=== PATIENT | female | born 1995 | race Caucasian/White ===

== ENCOUNTER 2016-08-15 05:30 | Emergency (ER) | payer BC, OTHER ==
[~2016-08-15] VITALS: Ht 165.1 cm; Wt 54.2 kg
[2016-08-15 05:33] VITALS: Ht 165.1 cm; Wt 54.2 kg
[2016-08-15] MEDS ORDERED: ACETAMINOPHEN 500 MG TAB PO STA (05:54)
--- NOTE | 2016-08-15 06:14 | EMERGENCY ROOM VISIT NOTE ---
ED Visit Note First contact with patient: 05:39 Chief Complaint: 103.7 Fever, Chicken Pox? History of Present Illness: Patient is a 21-year-old female who presents the emergency Department this morning for evaluation of her fever and possible chickenpox. She reports that on Monday evening she developed a fever of 101. On Monday morning she developed a rash. The rash is diffusely spread throughout her body. She describes it as itching. She was seen at a walk-in clinic and diagnosed with chickenpox. She reports that she has taken ibuprofen with minimal relief of symptoms, particularly fever. She was concerned for her fever which brought her to the emergency department today. She rates her current discomfort as a 5/10. The patient has not been vaccinated for chickenpox. She was vaccinated for everything else. She denies any headaches, dizziness, lightheadedness, neck pain/stiffness, nausea, vomiting, chest pain, cough, or abdominal pain. Medications: No current medications. Allergies: No known allergies. PMH: No pertinent past medical history. SHx: Patient is a 21-year-old female in [employer] who lives with roommates. ROS: All pertinent positive and negative review of systems are appropriately documented in the History of Present Illness. Physical Exam: VITAL SIGNS - Vital signs and nursing notes were reviewed. GENERAL - Well nourished, well developed 21-year-old female in no acute distress. Pt communicates well with provider and answers questions appropriately. SKIN - Vesicular lesions on red bases in multiple stages throughout the body. No crusting of lesions. No petechiae or palpable purpura. HEAD - NC/AT with no obvious deformities. EYES - PERRL with EOMI bilaterally. Sclera without injection. Palpebral conjunctiva pink and moist. EARS - No deformities of external structures noted on gross examination bilaterally. No pain elicited with palpation of the tragus bilaterally. External auditory canals without discharge or otorrhea. Tympanic membranes pearly ruiz without retraction or bulging. No fluid or purulent material visualized behind the TM. Handle of malleus, umbo, cone of light, pars tensa/ flaccid all easily visualized. NOSE - Midline and without cyanosis. No purulent drainage noted. Nasal mucosa without mucus discharge. MOUTH/OROPHARYNX - Without perioral cyanosis. Buccal mucosa pink and moist and without leukoplakia. Tongue midline with equal elevation of palate bilaterally. No tonsillar hypertrophy, erythema, or exudates noted. Good dentition noted. NECK - Neck with FROM. Supple to palpation. No lymphadenopathy noted. No nuchal rigidity. LUNGS - Chest wall symmetric without accessory muscle use, intercostals retractions, or central cyanosis. Normal vesicular breath sounds CTA B/L. No wheezes, rales, or rhonchi appreciated. CARDIAC - RRR with S1/S2. No murmur, rubs, or gallops appreciated. ABDOMEN - Abdominal contour flat without pulsations or visible masses. BS normoactive all four quadrants. No tenderness, palpable masses, hepatosplenomegaly, or ascites noted. ED Course: Patient was seen and evaluated by myself. I had a lengthy discussion with the patient regarding symptoms, management, and isolation to this point. She was provided Tylenol for symptoms of fever. Ferrous elbow wound cultures were obtained and pending at this time. The patient was encouraged to follow-up with [facility] from today's visit. She was educated on worrisome symptoms for return visit to the emergency department. Patient discharged home afebrile and in good condition. In the evaluation and treatment of this patient, the following differential diagnoses were considered: Cellulitis, dermatitis, mumps, measles, amongst others. Impression: Varicella Zoster - Chicken Pox Discharge Instructions: You've been seen in the emergency department today for your chickenpox. You should take Benadryl (diphenhydramine) 25-50 mg every 6 hours for the next 3 days. You can find this medicine [id number]. Benadryl can help reduce your symptoms. You should take it for the next 3 days or until your symptoms have subsided. Be aware that Benadryl can make you drowsy. For pain control, you can use the following kvwi-ldp-[id number] medicines (if >12 yo): - Regular strength (325mg/tab) Tylenol (acetaminophen) 2 tabs every 4-6 hours as needed. Do not exceed 12 tablets in a 24 hour period. Avoid taking more than 4 grams (4000 mg) of Tylenol per day. This includes any other sources of acetaminophen you may take on a regular basis. - Regular strength (200 mg/tab) Advil (ibuprofen) 1-2 tabs every 4-6 hours as needed. Do not exceed a dose of 3200 mg per day. You can contact the emergency department at [phone] for the results of your varicella swabs. This should be available within the next 72 hours. Follow-up with [facility] from today's visit. Return for any changing or worsening symptoms. Current/Historical Medications No Active Prescriptions or Reported Meds Allergies Coded Allergies: No Known Allergies (Unverified , 08/19/16) Vital Signs Date Time Temp Pulse Resp B/P Pulse Ox O2 Delivery O2 Flow Rate FiO2 08/15/16 06:29 37.5 98 16 119/74 100 08/15/16 05:33 37.9 119 18 124/82 99 Room Air Laboratory Results Test 08/15/16 00:00 Medications Administered Medications (Trade) Dose Ordered Sig/Elias Route Start Time Stop Time Status Last Admin Dose Admin Acetaminophen (Tylenol Tab) 1,000 mg NOW STAT PO 08/15/16 05:54 08/15/16 05:56 DC 08/15/16 05:54 1,000 MG Departure Information Impression Primary Impression: Varicella zoster Additional Impressions: Chicken pox Fever Dispostion Home / Self-Care Condition GOOD Prescriptions No Active Prescriptions or Reported Meds Referrals No Doctor, Assigned (PCP) Patient Instructions ED Chickenpox Ch, [facility] Additional Instructions You've been seen in the emergency department today for your chickenpox. You should take Benadryl (diphenhydramine) 25-50 mg every 6 hours for the next 3 days. You can find this medicine [id number]. Benadryl can help reduce your symptoms. You should take it for the next 3 days or until your symptoms have subsided. Be aware that Benadryl can make you drowsy. For pain control, you can use the following avyi-chl-efccvvd medicines (if >12 yo): - Regular strength (325mg/tab) Tylenol (acetaminophen) 2 tabs every 4-6 hours as needed. Do not exceed 12 tablets in a 24 hour period. Avoid taking more than 4 grams (4000 mg) of Tylenol per day. This includes any other sources of acetaminophen you may take on a regular basis. - Regular strength (200 mg/tab) Advil (ibuprofen) 1-2 tabs every 4-6 hours as needed. Do not exceed a dose of 3200 mg per day. You can contact the emergency department at [phone] for the results of your varicella swabs. This should be available within the next 72 hours. Follow-up with [facility] from today's visit. Return for any changing or worsening symptoms. Problem Qualifiers Additional Impressions: Chicken pox Varicella complications: without complication Qualified Codes: B01.9 - Varicella without complication Fever Fever type: unspecified Qualified Codes: R50.9 - Fever, unspecified
[2016-08-15 06:29] VITALS: BP 119/74; PULSE 98; TEMP 37.5; O2SAT 100
[2016-08-22 22:08] LABS: V-ZOSTER CULT ISOLATED
== END 2016-08-15 06:30 | disposition home or self-care (01) ==
LOC: C.EDB 05:30 → C.EDA 06:30
DX: B01.9 Varicella without complication (principal); R50.9 Fever, unspecified

== ENCOUNTER 2016-08-19 00:29 | Emergency (ER) | payer BC, OTHER ==
[~2016-08-19] VITALS: Ht 165.1 cm; Wt 52.7 kg
[2016-08-19 00:31] VITALS: BP 108/61; PULSE 115; TEMP 37.1; O2SAT 98; Ht 165.1 cm; Wt 52.7 kg
--- NOTE | 2016-08-19 00:50 | EMERGENCY ROOM VISIT NOTE ---
History First contact with patient: 00:37 Chief Complaint: OTHER COMPLAINT Stated Complaint: CHECK UP ON CHICKEN POX History of Present Illness The patient is a 21 year old female who presents to the Emergency Room for recheck of chickenpox. The patient states she was here 6 days ago for a rash and fevers and was diagnosed with chickenpox. She states that her fevers completely resolved 3 days ago. She states that she has not had any new skin lesions. All of the lesions she has scabbed over. She denies any further itching or discomfort. She denies sore throat, headache, neck pain, cough, shortness of breath or earaches. Review of Systems A complete 10-point Review of Systems was discussed with the patient, with pertinent positives and negatives listed in the History of Present Illness. All remaining Review of Systems questions can be considered negative unless otherwise specified. Social History Smoking Status: Never Smoker Current/Historical Medications No Active Prescriptions or Reported Meds Allergies Coded Allergies: No Known Allergies (Unverified , 08/19/16) Physical Exam Vital Signs Date Time Temp Pulse Resp B/P Pulse Ox O2 Delivery O2 Flow Rate FiO2 08/19/16 00:31 37.1 115 20 108/61 98 Room Air Physical Exam VITALS: Vitals are noted on the nurse's note and reviewed by myself. Vital signs stable. GENERAL: This is a 21-year-old female, in no acute distress, nondiaphoretic, well-developed well-nourished. SKIN: There are diffuse crusted papules, no vesicular lesions. HEENT: Normocephalic. PERRLA. EOMI. Nares patent. Mucous membranes moist. Neck is supple without nuchal rigidity. HEART: Regular rate and rhythm without murmurs gallops or rubs. LUNGS: Clear to auscultation bilaterally without wheezes, rales or rhonchi. No retractions or accessory muscle use. NEURO: Patient was alert and oriented to person place and time. Medical Decision & Procedures Medical Decision The patient was evaluated as above. She no longer has fevers and all of her skin lesions have crusted over at this time. The patient is concerned that she is contagious and will not be able to fly. I did inform the patient that I feel she is stable to fly and she was informed of this. She will follow-up with her primary care provider at home as needed. She verbalized understanding of my assessment and treatment plan and was discharged home in good condition. Impression Primary Impression: Varicella zoster Departure Information Dispostion Home / Self-Care Condition GOOD Prescriptions No Active Prescriptions or Reported Meds Referrals No Doctor, Assigned (PCP) Patient Instructions My [facility] Additional Instructions Follow up with your primary care provider as needed.
== END 2016-08-19 00:56 | disposition home or self-care (01) ==
LOC: C.EDB 00:30
DX: B01.9 Varicella without complication (principal)